=== PATIENT | male | born 1930 | race Caucasian/White ===

== ENCOUNTER 2017-02-27 13:23 | Inpatient (IN) | payer MEDICARE ==
[~2017-02-27] VITALS: Ht 167.6 cm; Wt 59.0 kg
[2017-02-27] MEDS ORDERED: Sodium Chloride 500ML 500 ML IV ONE (13:27)
[2017-02-27] MEDS ORDERED: Albuterol ud Inhalation HHN ONE (13:30)
[2017-02-27] MEDS ORDERED: Ipratropium 0.02% Inh Soln 2.5ml UD HHN ONE (13:30)
[2017-02-27] MEDS ORDERED: Solu-MEDROL 125mg Inj IVP ONE (13:30)
[2017-02-27] MEDS ORDERED: Tubing IV Cassette IV ONE (13:56)
--- NOTE | 2017-02-27 14:10 | Diagnostic Imaging Report ---
Indication: SOB Technique: One view of the chest Comparison: none Findings: Lungs and pleural spaces are clear. Heart size is normal. Surgical clips are seen in the right upper quadrant of the abdomen Impression: No acute process
[2017-02-27 14:15] VITALS: BP 115/65
[2017-02-27 14:29] LABS: EOSINOPHILS % (AUTO) 1.7 % (0.0-3.0); HEMATOCRIT 43.7 % (42.0-52.0); HEMOGLOBIN 14.3 G/DL (14.2-18.0); LYMPHOCYTES % (AUTO) 37.6 % (20.0-45.0); MEAN CORPUSCULAR VOLUME 101 FL (80-99); MONOCYTES % (AUTO) 8.9 % (1.0-10.0); NEUTROPHILS % (AUTO) 50.8 % (45.0-75.0); PLATELET COUNT 346 K/UL (150-450); RED BLOOD COUNT 4.33 M/UL (4.70-6.10); RED CELL DISTRIBUTION WIDTH 14.2 % (11.6-14.8)
[2017-02-27 14:43] LABS: ALANINE AMINOTRANSFERASE 29 U/L (12-78); ALBUMIN 3.4 G/DL (3.4-5.0); ALBUMIN/GLOBULIN RATIO 0.7 (1.0-2.7); ALKALINE PHOSPHATASE 115 U/L (46-116); ANION GAP 9 mmol/L (5-15); ASPARTATE AMINO TRANSFERASE 26 U/L (15-37); BILIRUBIN,TOTAL 1.1 MG/DL (0.2-1.0); BLOOD UREA NITROGEN 26 mg/dL (7-18); CALCIUM 9.7 MG/DL (8.5-10.1); CARBON DIOXIDE 28 MMOL/L (21-32); CHLORIDE 101 MMOL/L (98-107); CREATINE KINASE 35 U/L (26-308); CREATININE 2.2 MG/DL (0.55-1.30); POTASSIUM 4.6 MMOL/L (3.5-5.1); SODIUM 137 MMOL/L (136-145)
[2017-02-27 14:54] LABS: BILIRUBIN,DIRECT 0.3 MG/DL (0.0-0.3)
--- NOTE | 2017-02-27 15:04 | Emergency Room Report ---
History of Present Illness General Chief Complaint: Dyspnea/Respdistress Source: Medical Record, EMS Present Illness HPI 86YOM BIBEMS for "low O2 sat" EMS states low BP in the field Normal BP here Patient dementia? not providing much HPI Is not in any distress Initial temp was 96F, patient with cold extremities Possibly low O2 sat d/t cold extremities at SNF Review of paperwork shows known CKD and COPD but no history of CHF No other family members bedside per Dr Taylor Recent DC from [facility] nstemi S/p stent chf russell ischemic cardiomy afib stent placed left circumflex serum creat 2.3 at DC Allergies: Coded Allergies: No Known Allergies (Unverified , 02/27/17) Patient History Past Medical History: see triage record, unable to obtain, renal disease Past Surgical History: unable to obtain Pertinent Family History: unable to obtain Social History: Denies: smoking, alcohol use, drug use Immunizations: UTD Reviewed Nursing Documentation: PMH: Agreed, PSxH: Agreed Nursing Documentation-PMH Past Medical History: No History, Except For Hx Cardiac Problems: Yes - DE Hx Hypertension: Yes Hx Asthma: No - PLEURAL EFFUSION Hx Dialysis: No - ACUTE KIDNEY FAILURE Review of Systems All Other Systems: limited - Dementia Physical Exam Vital Signs Date Time Temp Pulse Resp B/P (MAP) Pulse Ox O2 Delivery O2 Flow Rate FiO2 02/27/17 13:20 55 20 78/40 93 Non-Rebreather 15.0 02/27/17 13:42 100 02/27/17 14:15 96.6 Sp02 EP Interpretation: reviewed, normal General Appearance: normal inspection, well appearing, no apparent distress, alert, GCS 15, non-toxic Head: normocephalic, atraumatic Eyes: bilateral eye PERRL, bilateral eye EOMI ENT: normal ENT inspection, hearing grossly normal, normal voice Neck: normal inspection, full range of motion, supple, no bony tend Respiratory: normal inspection, lungs clear, normal breath sounds, no respiratory distress, no retraction, no wheezing Cardiovascular #1: regular rate, rhythm, no edema Gastrointestinal: normal inspection, normal bowel sounds, non tender, soft, no guarding, no hernia Genitourinary: no CVA tenderness Musculoskeletal: normal inspection, back normal, normal range of motion, Xuan' s Sign negative Neurologic: normal inspection, alert, responsive, speech normal Psychiatric: normal inspection, judgement/insight normal, mood/affect normal Skin: normal inspection, normal color, no rash Medical Decision Making Medicare Attestation I Shola Cannon MD hereby attest that the medical record entry for date of service, 02/27/17 accurately reflects signatures/notations that I made in my capacity as MD when I treated/diagnosed the above listed Medicare beneficiary. I attest that this information is true, accurate and complete to the best of my knowledge. I understand that any falsification, omission, or concealment of material fact may subject me to administrative, civil, or criminal liability. This patient warrants hospital admission for extreme of age and has a condition that cannot be treated as outpatient. Diagnostic Impression: Primary Impression: Hypoxia Additional Impressions: Hypothermia Qualified Codes: T68.XXXA - Hypothermia, initial encounter Elevated lactic acid level CKD (chronic kidney disease) Qualified Codes: N18.9 - Chronic kidney disease, unspecified Atrial flutter by electrocardiogram ER Course BP is normal here throughout ED stay Afebrile. No leuks. Lactate 3.7 BNP very elevated in setting of CKD. Has known RUSSELL. Unknown baseline However lungs CTAB and CXR does not show pulm congestion Was given 500cc fluid bolus by Dr Martines prior to my taking over patient He is actually clinically dehydrated without much urine on straight cath so additional 500cc given by me for likely RUSSELL on CKD Had atrial flutter on ECG but is NSR on rhythm strip. Troponin is WNL. SerumCr of 2.2 is baseline per recent admit at [facility] Endorsed to Dr Taylor for admission, tele 445pm EKG Diagnostic Results Rate: other - aflutter ST Segments: no acute changes ASA given to the pt in ED: No Rhythm Strip Diag. Results EP Interpretation: yes Rate: 50 Rhythm: NSR, no PVC's, no ectopy Chest X-Ray Diagnostic Results Chest X-Ray Diagnostic Results : Chest X-Ray Ordered: Yes Indication: Shortness of Breath EP Interpretation: Yes Interpretation: no consolidation, no effusion, no pneumothorax, no acute cardiopulmonary disease Impression: No acute disease Electronically Signed by: Dr Shola Cannon MD Last Vital Signs Date Time Temp Pulse Resp B/P (MAP) Pulse Ox O2 Delivery O2 Flow Rate FiO2 02/27/17 14:15 96.6 57 16 115/65 100 Nasal Cannula 2.0 02/27/17 13:50 100 Status: improved Disposition: ADMITTED INPATIENT Condition: Serious Referrals: NON PHYSICIAN (PCP) SHOLA CANNON M.D. Feb 27, 2017 15:04
[2017-02-27 15:58] LABS: APPEARANCE,URINE SLIGHTLY CLOUDY; BILIRUBIN, URINE NEGATIVE (NEGATIVE); GLUCOSE, URINE (UA) NEGATIVE (NEGATIVE); KETONES,URINE NEGATIVE (NEGATIVE); LEUKOCYTE ESTERASE ,URINE 3+ (NEGATIVE); NITRITE,URINE NEGATIVE (NEGATIVE); PH,URINE 6 (4.5-8.0); PROTEIN,URINE 3+ (NEGATIVE); UROBILINOGEN,URINE 4 MG/DL (0.0-1.0)
[2017-02-27 16:00] VITALS: BP 121/44
[2017-02-27] MEDS ORDERED: AMIODARONE HCL400 M1 ORAL (16:01)
[2017-02-27] MEDS ORDERED: SENNA8.6 M2 PO (16:01)
[2017-02-27] MEDS ORDERED: FUROSEMIDE20 M1 ORAL (16:01)
[2017-02-27] MEDS ORDERED: KLONOPIN0.5 MG ORAL (16:01)
[2017-02-27] MEDS ORDERED: MULTIVITAMINS1 EAC8 ORAL (16:01)
[2017-02-27] MEDS ORDERED: MIRTAZAPINE15 MG ORAL (16:01)
[2017-02-27] MEDS ORDERED: LOSARTAN POTASS50 MG ORAL (16:01)
[2017-02-27] MEDS ORDERED: DULCOLAX RC (16:01)
[2017-02-27] MEDS ORDERED: ATORVASTATIN CA20 MG ORAL (16:01)
[2017-02-27] MEDS ORDERED: METOPROLOL TART50 M1 ORAL (16:01)
[2017-02-27] MEDS ORDERED: DOCUSATE SODIU100 MG ORAL (16:01)
[2017-02-27] MEDS ORDERED: VITAMIN C500 M1 ORAL (16:01)
[2017-02-27] MEDS ORDERED: FLEET MINERAL OIL RC (16:01)
[2017-02-27] MEDS ORDERED: ARICEPT5 MG ORAL (16:01)
[2017-02-27] MEDS ORDERED: PLAVIX75 MG ORAL (16:01)
[2017-02-27 16:06] LABS: COLOR,URINE YELLOW
[2017-02-27] MEDS ORDERED: cefTRIAXone 1 GM in D5W 55 ML IVPB ONE (16:30)
[2017-02-27] MEDS ORDERED: D5W 55 ML IV ONE (16:45)
--- NOTE | 2017-02-27 18:59 | Cardiology Progress Note ---
Assessment/Plan Assessment/Plan The patient is seen and examined, full consult note is dictated. Objective Last 24 Hour Vital Signs Date Time Temp Pulse Resp B/P (MAP) Pulse Ox O2 Delivery O2 Flow Rate FiO2 02/27/17 17:05 96.6 72 18 121/44 100 Nasal Cannula 2.0 100 02/27/17 16:00 72 18 121/44 100 Nasal Cannula 2.0 02/27/17 14:15 96.6 57 16 115/65 100 Nasal Cannula 2.0 02/27/17 13:50 56 20 100 Non-Rebreather 15.0 100 02/27/17 13:42 58 20 Non-Rebreather 15.0 100 02/27/17 13:42 100 02/27/17 13:42 58 20 100 Non-Rebreather 15.0 100 02/27/17 13:25 55 20 Nasal Cannula 2.0 02/27/17 13:20 55 20 78/40 93 Non-Rebreather 15.0 Intake and Output 02/27/17 02/28/17 19:00 07:00 Intake Total 1000 ml Balance 1000 ml Intake Oral 0 ml IV Total 1000 ml Laboratory Tests Test 02/27/17 13:52 02/27/17 14:35 02/27/17 15:20 White Blood Count 7.0 K/UL (4.8-10.8) Red Blood Count 4.33 M/UL (4.70-6.10) L Hemoglobin 14.3 G/DL (14.2-18.0) Hematocrit 43.7 % (42.0-52.0) Mean Corpuscular Volume 101 FL (80-99) H Mean Corpuscular Hemoglobin 33.0 PG (27.0-31.0) H Mean Corpuscular Hemoglobin Concent 32.6 G/DL (32.0-36.0) Red Cell Distribution Width 14.2 % (11.6-14.8) Platelet Count 346 K/UL (150-450) Mean Platelet Volume 7.7 FL (6.5-10.1) Neutrophils (%) (Auto) 50.8 % (45.0-75.0) Lymphocytes (%) (Auto) 37.6 % (20.0-45.0) Monocytes (%) (Auto) 8.9 % (1.0-10.0) Eosinophils (%) (Auto) 1.7 % (0.0-3.0) Basophils (%) (Auto) 1.0 % (0.0-2.0) Arterial Blood pH 7.409 (7.350-7.450) Arterial Blood Partial Pressure CO2 37.9 mmHg (35.0-45.0) Arterial Blood Partial Pressure O2 320.4 mmHg (75.0-100.0) H Arterial Blood HCO3 23.4 mmol/L (22.0-26.0) Arterial Blood Oxygen Saturation 99.0 % (92.0-98.0) H Arterial Blood Base Excess 0.9 Demetris Test Positive Sodium Level 137 MMOL/L (136-145) Potassium Level 4.6 MMOL/L (3.5-5.1) Chloride Level 101 MMOL/L (98-107) Carbon Dioxide Level 28 MMOL/L (21-32) Anion Gap 9 mmol/L (5-15) Blood Urea Nitrogen 26 mg/dL (7-18) H Creatinine 2.2 MG/DL (0.55-1.30) H Estimat Glomerular Filtration Rate mL/min (>60) Glucose Level 125 MG/DL (74-106) H Lactic Acid Level 3.70 mmol/L (0.66-2.22) H 2.10 mmol/L (0.66-2.22) Calcium Level 9.7 MG/DL (8.5-10.1) Total Bilirubin 1.1 MG/DL (0.2-1.0) H Direct Bilirubin 0.3 MG/DL (0.0-0.3) Aspartate Amino Transf (AST/SGOT) 26 U/L (15-37) Alanine Aminotransferase (ALT/SGPT) 29 U/L (12-78) Alkaline Phosphatase 115 U/L (46-116) Total Creatine Kinase 35 U/L (26-308) Creatine Kinase MB 1.0 NG/ML (0.0-3.6) Creatine Kinase MB Relative Index 2.8 Troponin I 0.005 ng/mL (0.000-0.056) Pro-B-Type Natriuretic Peptide 65747 pg/mL (0-125) H Total Protein 8.6 G/DL (6.4-8.2) H Albumin 3.4 G/DL (3.4-5.0) Globulin 5.2 g/dL Albumin/Globulin Ratio 0.7 (1.0-2.7) L Urine Color Yellow Urine Appearance Slightly cloudy Urine pH 6 (4.5-8.0) Urine Specific [place] 1.015 (1.005-1.035) Urine Protein 3+ (NEGATIVE) H Urine Glucose (UA) Negative (NEGATIVE) Urine Ketones Negative (NEGATIVE) Urine Occult Blood 5+ (NEGATIVE) H Urine Nitrite Negative (NEGATIVE) Urine Bilirubin Negative (NEGATIVE) Urine Urobilinogen 4 MG/DL (0.0-1.0) H Urine Leukocyte Esterase 3+ (NEGATIVE) H Urine RBC 10-15 /HPF (0 - 0) H Urine WBC 5-10 /HPF (0 - 0) H Urine Squamous Epithelial Cells None /LPF (NONE/OCC) Urine Bacteria Moderate /HPF (NONE) H BRANDYN FRANKS Feb 27, 2017 18:59
[2017-02-27] MEDS ORDERED: Fleet's Enema 133ml RECTAL PRN (19:45)
[2017-02-27 20:00] VITALS: BP 116/62
[2017-02-27] MEDS: Atorvastatin 20mg tab ORAL SCH (21:19)
[2017-02-27] MEDS: Sennosides 8.6mg ORAL SCH (21:19)
[2017-02-27] MEDS ORDERED: Vitamin A&D Oint 2oz Tube TOPIC SCH (21:30)
[2017-02-28] VITALS: BP 114/67
[2017-02-28 04:00] VITALS: BP 104/56
[2017-02-28 08:00] VITALS: BP 90/49
--- NOTE | 2017-02-28 08:00 | History and Physical Report ---
DATE OF ADMISSION: 02/27/2017 HISTORY OF PRESENT ILLNESS: The patient is an 86-year-old male, who has had a long and complicated admission recently at [facility]. The patient was admitted to [facility] on 01/23/2017 and discharged to group home on 02/09/2017. His hospital course was notable for [id number]-AV-[id number] elevation HI. He subsequently required cardiac catheterization and 3 stents were placed into the left apical circulation. He was also found to have acute diastolic heart failure. He also required to be intubated for respiratory failure. He also had kidney failure with an initial creatinine of 2.3 and discharge creatinine of 1.39. The patient also has a history of dementia and hypertension with a questionable history of COPD. The patient's hospital course also complicated by hematuria secondary to Brilinta and Plavix, which were then discontinued and then gradually resumed. The patient is now admitted to [facility] after being transferred from nursing facility with symptoms of altered mental status and hypoxemia. On arrival, his hypoxemia has resolved with supplemental oxygen. The patient's baseline mental status is unchanged; however, he is noted to have lactic acid elevation and a creatinine of 2.4, which is worse from previous. The patient also has evidence of UTI and he is no longer has a Baugh catheter. PAST HISTORY: As discussed above is notable for hyperlipidemia; atrial fibrillation; recent HI, status post stent; acute diastolic congestive heart failure; cognitive impairment; ischemic cardiomyopathy; and atherosclerosis. MEDICATIONS: The patient's list of home medications include amiodarone, ascorbic acid, Lipitor, Klonopin, Plavix, Colace, Aricept, Lasix, losartan, metoprolol, Remeron, multivitamins, and p.r.n. medications. SOCIAL HISTORY: The patient is a group home resident. No family is available. not noted any history of tobacco or alcohol usage. REVIEW OF SYSTEMS: Denies any headaches, hematemesis, melena, hematochezia, or weight loss. PHYSICAL EXAMINATION: GENERAL: An obese elderly male. HEENT: Unremarkable. LUNGS: Clear breath sounds bilaterally. ABDOMEN: Soft. NEUROLOGIC: Nonfocal. LABORATORY AND DIAGNOSTIC DATA: His most recent labs show normal CBC and a creatinine of 2.2. Glucose 125. Lactic acid 3.7. Imaging Studies: A was also obtained, which shows clear lung reaves. IMPRESSION: 1. Possible urinary tract infection. 2. Lactic acidosis. 3. Recent myocardial infarction, status post percutaneous coronary intervention. 4. History of congestive heart failure. 5. Dementia. 6. Recent hematuria. DISCUSSION: We will admit to the hospital. Consult Cardiology and Urology. Start antibiotics. Continue medications. We will follow carefully. Gerald Taylor M.D. DR: KIARA JOB#: [id number] CC:
--- NOTE | 2017-02-28 08:00 | History and Physical Report ---
DATE OF ADMISSION: 02/27/2017 HISTORY OF PRESENT ILLNESS: The patient is an 86-year-old male, who has had a long and complicated admission recently at [facility]. The patient was admitted to [facility] on 01/23/2017 and discharged to long-term on 02/09/2017. His hospital course was notable for eyo-CK-qxstyys elevation VT. He subsequently required cardiac catheterization and 3 stents were placed into the left apical circulation. He was also found to have acute diastolic heart failure. He also required to be intubated for respiratory failure. He also had kidney failure with an initial creatinine of 2.3 and discharge creatinine of 1.39. The patient also has a history of dementia and hypertension with a questionable history of COPD. The patient's hospital course also complicated by hematuria secondary to Brilinta and Plavix, which were then discontinued and then gradually resumed. The patient is now admitted to [facility] after being transferred from nursing facility with symptoms of altered mental status and hypoxemia. On arrival, his hypoxemia has resolved with supplemental oxygen. The patient's baseline mental status is unchanged; however, he is noted to have lactic acid elevation and a creatinine of 2.4, which is worse from previous. The patient also has evidence of UTI and he is no longer has a Baugh catheter. PAST HISTORY: As discussed above is notable for hyperlipidemia; atrial fibrillation; recent VT, status post stent; acute diastolic congestive heart failure; cognitive impairment; ischemic cardiomyopathy; and atherosclerosis. MEDICATIONS: The patient's list of home medications include amiodarone, ascorbic acid, Lipitor, Klonopin, Plavix, Colace, Aricept, Lasix, losartan, metoprolol, Remeron, multivitamins, and p.r.n. medications. SOCIAL HISTORY: The patient is a long-term resident. No family is available. not noted any history of tobacco or alcohol usage. REVIEW OF SYSTEMS: Denies any headaches, hematemesis, melena, hematochezia, or weight loss. PHYSICAL EXAMINATION: GENERAL: An obese elderly male. HEENT: Unremarkable. LUNGS: Clear breath sounds bilaterally. ABDOMEN: Soft. NEUROLOGIC: Nonfocal. LABORATORY AND DIAGNOSTIC DATA: His most recent labs show normal CBC and a creatinine of 2.2. Glucose 125. Lactic acid 3.7. Imaging Studies: A was also obtained, which shows clear lung reaves. IMPRESSION: 1. Possible urinary tract infection. 2. Lactic acidosis. 3. Recent myocardial infarction, status post percutaneous coronary intervention. 4. History of congestive heart failure. 5. Dementia. 6. Recent hematuria. DISCUSSION: We will admit to the hospital. Consult Cardiology and Urology. Start antibiotics. Continue medications. We will follow carefully. Gerald Taylor M.D. DR: KIARA JOB#: [id number] CC:
--- NOTE | 2017-02-28 08:00 | History and Physical Report ---
DATE OF ADMISSION: 02/27/2017 HISTORY OF PRESENT ILLNESS: The patient is an 86-year-old male, who has had a long and complicated admission recently at [facility]. The patient was admitted to [facility] on 01/23/2017 and discharged to longterm on 02/09/2017. His hospital course was notable for dyu-VB-qvkagzs elevation MA. He subsequently required cardiac catheterization and 3 stents were placed into the left apical circulation. He was also found to have acute diastolic heart failure. He also required to be intubated for respiratory failure. He also had kidney failure with an initial creatinine of 2.3 and discharge creatinine of 1.39. The patient also has a history of dementia and hypertension with a questionable history of COPD. The patient's hospital course also complicated by hematuria secondary to Brilinta and Plavix, which were then discontinued and then gradually resumed. The patient is now admitted to [facility] after being transferred from nursing facility with symptoms of altered mental status and hypoxemia. On arrival, his hypoxemia has resolved with supplemental oxygen. The patient's baseline mental status is unchanged; however, he is noted to have lactic acid elevation and a creatinine of 2.4, which is worse from previous. The patient also has evidence of UTI and he is no longer has a Baugh catheter. PAST HISTORY: As discussed above is notable for hyperlipidemia; atrial fibrillation; recent MA, status post stent; acute diastolic congestive heart failure; cognitive impairment; ischemic cardiomyopathy; and atherosclerosis. MEDICATIONS: The patient's list of home medications include amiodarone, ascorbic acid, Lipitor, Klonopin, Plavix, Colace, Aricept, Lasix, losartan, metoprolol, Remeron, multivitamins, and p.r.n. medications. SOCIAL HISTORY: The patient is a longterm resident. No family is available. not noted any history of tobacco or alcohol usage. REVIEW OF SYSTEMS: Denies any headaches, hematemesis, melena, hematochezia, or weight loss. PHYSICAL EXAMINATION: GENERAL: An obese elderly male. HEENT: Unremarkable. LUNGS: Clear breath sounds bilaterally. ABDOMEN: Soft. NEUROLOGIC: Nonfocal. LABORATORY AND DIAGNOSTIC DATA: His most recent labs show normal CBC and a creatinine of 2.2. Glucose 125. Lactic acid 3.7. Imaging Studies: A was also obtained, which shows clear lung reaves. IMPRESSION: 1. Possible urinary tract infection. 2. Lactic acidosis. 3. Recent myocardial infarction, status post percutaneous coronary intervention. 4. History of congestive heart failure. 5. Dementia. 6. Recent hematuria. DISCUSSION: We will admit to the hospital. Consult Cardiology and Urology. Start antibiotics. Continue medications. We will follow carefully. Gerald Taylor M.D. DR: KIARA JOB#: [id number] CC:
[2017-02-28] MEDS: Losartan 50mg tab ORAL SCH ×2 (09:00→18:00)
[2017-02-28] MEDS ORDERED: Amiodarone 200mg tab ORAL SCH (09:00)
--- NOTE | 2017-02-28 09:10 | Pulmonology Progress Note ---
Assessment/Plan Assessment/Plan IMPRESSION: 1. Possible urinary tract infection. 2. Lactic acidosis. Downtrending. 3. Recent myocardial infarction, status post percutaneous coronary intervention. 4. History of congestive heart failure. 5. Dementia. 6. Recent hematuria. 7. Bradycardia. DISCUSSION: Urology consult pending; unable to marino in ER; needs marino Cardiology following for bradycardia; may need to decrease amiodarone Check labs in AM Continue antibiotics Check labs in AM Subjective Interval Events: More awake; denies pain; bradycardic Constitutional: Reports: no symptoms HEENT: Repors: no symptoms Respiratory: Reports: no symptoms Cardiovascular: Reports: no symptoms Gastrointestinal/Abdominal: Reports: no symptoms Genitourinary: Reports: no symptoms Neurologic: Reports: no symptoms Allergies: Coded Allergies: No Known Allergies (Unverified , 02/27/17) Objective Last 24 Hour Vital Signs Date Time Temp Pulse Resp B/P (MAP) Pulse Ox O2 Delivery O2 Flow Rate FiO2 02/28/17 04:00 97.6 61 16 104/56 97 Nasal Cannula 2.0 02/28/17 04:00 69 02/28/17 00:00 62 02/28/17 00:00 97.7 65 20 114/67 100 Room Air 02/27/17 20:00 52 02/27/17 20:00 97.6 52 16 116/62 100 Nasal Cannula 2.0 02/27/17 17:05 96.6 72 18 121/44 100 Nasal Cannula 2.0 100 02/27/17 16:00 72 18 121/44 100 Nasal Cannula 2.0 02/27/17 14:15 96.6 57 16 115/65 100 Nasal Cannula 2.0 02/27/17 13:50 56 20 100 Non-Rebreather 15.0 100 02/27/17 13:42 58 20 Non-Rebreather 15.0 100 02/27/17 13:42 100 02/27/17 13:42 58 20 100 Non-Rebreather 15.0 100 02/27/17 13:25 55 20 Nasal Cannula 2.0 02/27/17 13:20 55 20 78/40 93 Non-Rebreather 15.0 General Appearance: no acute distress HEENT: normocephalic Respiratory/Chest: chest wall non-tender, lungs clear Cardiovascular: normal peripheral pulses, bradycardia Abdomen: normal bowel sounds, soft, non tender Microbiology Date/Time Source Procedure Growth Status 02/27/17 15:20 Urine,Clean Catch Urine Culture - Preliminary Gram Negative Bacillus 1 Resulted Laboratory Tests 02/27/17 13:52: White Blood Count 7.0, Red Blood Count 4.33L, Hemoglobin 14.3, Hematocrit 43.7, Mean Corpuscular Volume 101H, Mean Corpuscular Hemoglobin 33.0H, Mean Corpuscular Hemoglobin Concent 32.6, Red Cell Distribution Width 14.2, Platelet Count 346, Mean Platelet Volume 7.7, Neutrophils (%) (Auto) 50.8, Lymphocytes (% ) (Auto) 37.6, Monocytes (%) (Auto) 8.9, Eosinophils (%) (Auto) 1.7, Basophils ( %) (Auto) 1.0, Arterial Blood pH 7.409, Arterial Blood Partial Pressure CO2 37.9 , Arterial Blood Partial Pressure O2 320.4H, Arterial Blood HCO3 23.4, Arterial Blood Oxygen Saturation 99.0H, Arterial Blood Base Excess 0.9, Demetris Test Positive, Sodium Level 137, Potassium Level 4.6, Chloride Level 101, Carbon Dioxide Level 28, Anion Gap 9, Blood Urea Nitrogen 26H, Creatinine 2.2H, Estimat Glomerular Filtration Rate , Glucose Level 125H, Lactic Acid Level 3.70H , Calcium Level 9.7, Total Bilirubin 1.1H, Direct Bilirubin 0.3, Aspartate Amino Transf (AST/SGOT) 26, Alanine Aminotransferase (ALT/SGPT) 29, Alkaline Phosphatase 115, Total Creatine Kinase 35, Creatine Kinase MB 1.0, Creatine Kinase MB Relative Index 2.8, Troponin I 0.005, Pro-B-Type Natriuretic Peptide 34438A, Total Protein 8.6H, Albumin 3.4, Globulin 5.2, Albumin/Globulin Ratio 0.7L 02/27/17 14:35: Lactic Acid Level 2.10 02/27/17 15:20: Urine Color Yellow, Urine Appearance Slightly cloudy, Urine pH 6, Urine Specific [place] 1.015, Urine Protein 3+H, Urine Glucose (UA) Negative, Urine Ketones Negative, Urine Occult Blood 5+H, Urine Nitrite Negative, Urine Bilirubin Negative, Urine Urobilinogen 4H, Urine Leukocyte Esterase 3+H, Urine RBC 10-15H, Urine WBC 5-10H, Urine Squamous Epithelial Cells None, Urine Bacteria ModerateH Current Medications Medications (Trade) Dose Ordered Sig/Alirio Route PRN Reason Start Time Stop Time Status Last Admin Dose Admin Amiodarone HCl (Cordarone) 200 mg DAILY ORAL 02/28/17 09:00 03/30/17 08:59 Ascorbic Acid (Vitamin C) 500 mg DAILY ORAL 02/28/17 09:00 03/30/17 08:59 Atorvastatin Calcium (Lipitor) 20 mg BEDTIME ORAL 02/27/17 21:00 03/29/17 20:59 02/27/17 21:19 Bisacodyl (Dulcolax) 10 mg DAILYPRN PRN RECTAL Constipation 1st Line Agent 02/27/17 19:45 03/29/17 19:44 Ceftriaxone Sodium 1 gm/ Dextrose 55 ml @ 110 mls/hr Q24H IVPB 02/28/17 16:30 03/07/17 16:29 Clopidogrel Bisulfate (Plavix) 75 mg DAILY ORAL 02/28/17 09:00 03/30/17 08:59 Docusate Sodium (Colace) 100 mg DAILY ORAL 02/28/17 09:00 03/30/17 08:59 Donepezil HCl (Aricept) 5 mg DAILY ORAL 02/28/17 09:00 03/30/17 08:59 Furosemide (Lasix) 20 mg DAILY ORAL 02/28/17 09:00 03/30/17 08:59 Losartan Potassium (Cozaar) 50 mg BID ORAL 02/28/17 09:00 03/30/17 08:59 Mirtazapine (Remeron) 7.5 mg BEDTIME ORAL 02/27/17 21:00 03/29/17 20:59 02/27/17 21:19 Multivitamins Therapeutic (Therapeutic Multivitamin) 1 ea DAILY ORAL 02/28/17 09:00 03/30/17 08:59 Sennosides (Senokot) 8.6 mg QHS ORAL 02/27/17 21:00 03/29/17 20:59 02/27/17 21:19 Sodium Phosphate (Fleet's Sodium Phosl Enema) 133 ml DAILYPRN PRN RECTAL Constipation 2nd Line Agent 02/27/17 19:45 03/29/17 19:44 Gerald Taylor MD Feb 28, 2017 09:10
[2017-02-28] MEDS: Multivitamin w/Minerals tab ORAL SCH (09:27)
[2017-02-28] MEDS: Ascorbic Acid 500mg tab ORAL SCH (09:27)
[2017-02-28] MEDS: Donepezil 5mg Tab ORAL SCH (09:27)
[2017-02-28] MEDS: Docusate 100mg cap ORAL SCH (09:27)
--- NOTE | 2017-02-28 09:27 | Wound Care Consultation ---
Wound Assessment Wound Assessment #1: Wound Number: 1 Wound Present on Admission: Yes New Wound: No Status Change of Wound: No Wound Location Body Site Modif: left Wound Location Body Site: elbow Wound Type: pressure ulcer Silvio Test: Does not Silvio Pressure Ulcer Stage: I Wound Length: 4.5 Wound Width: 3.0 Percent of Wound [place]/Red: 100 Wound Drainage Amount: None Wound Drainage Odor: None/Absent Tissue Surrounding Wound: Erythemic Wound General Appearance: Reddened Wound Assessment #2: Wound Number: 2 Wound Present on Admission: Yes New Wound: No Status Change of Wound: No Wound Location Body Site Modif: right Wound Location Body Site: elbow Wound Type: pressure ulcer Silvio Test: Does not Silvio Pressure Ulcer Stage: I Wound Length: 3.0 Wound Width: 3.0 Percent of Wound [place]/Red: 100 Wound Drainage Amount: None Wound Drainage Odor: None/Absent Tissue Surrounding Wound: Erythemic Wound General Appearance: Reddened Wound Assessment #3: Wound Number: 3 Wound Present on Admission: Yes New Wound: No Status Change of Wound: No Wound Location Body Site Modif: left Wound Location Body Site: heel Wound Type: pressure ulcer Silvio Test: Does not Silvio Pressure Ulcer Stage: Deep Tissue Injury Wound Thickness: Full Thickness Wound Length: 3.0 Wound Width: 3.0 Wound Depth: utd Percent of Wound Purple/Maroon: 100 Wound Drainage Amount: None Wound Drainage Odor: None/Absent Tissue Surrounding Wound: Erythemic Wound General Appearance: Reddened - purple Wound Assessment #4: Wound Number: 4 Wound Present on Admission: Yes New Wound: No Status Change of Wound: No Wound Location Body Site Modif: right Wound Location Body Site: heel Wound Type: pressure ulcer Silvio Test: Does not Silvio Pressure Ulcer Stage: Deep Tissue Injury Wound Thickness: Full Thickness Wound Length: 2.5 Wound Width: 3.0 Wound Depth: utd Percent of Wound Purple/Maroon: 100 Wound Drainage Amount: None Wound Drainage Odor: None/Absent Tissue Surrounding Wound: Erythemic Wound General Appearance: Reddened - purple Wound Assessment #5: Wound Number: 5 Wound Present on Admission: Yes New Wound: No Status Change of Wound: No Wound Location Body Site Modif: mid Wound Location Body Site: sacral Wound Type: pressure ulcer Silvio Test: Does not Silvio Pressure Ulcer Stage: Deep Tissue Injury Wound Thickness: Full Thickness Wound Length: 4.5 Wound Width: 5.5 Wound Depth: utd Percent of Wound Purple/Maroon: 100 Wound Drainage Amount: None Wound Drainage Odor: None/Absent Tissue Surrounding Wound: Erythemic Wound General Appearance: Reddened - purple Wound Assessment #6: Wound Number: 6 Wound Present on Admission: Yes New Wound: No Status Change of Wound: No Wound Location Body Site Modif: upper Wound Location Body Site: back Wound Type: pressure ulcer Silvio Test: Does not Silvio Pressure Ulcer Stage: Deep Tissue Injury - scattered Wound Thickness: Full Thickness Wound Length: 6.0 Wound Width: 2.5 Wound Depth: utd Percent of Wound Purple/Maroon: 100 Wound Drainage Amount: None Wound Drainage Odor: None/Absent Tissue Surrounding Wound: Erythemic Wound General Appearance: Reddened - purple Wound Comment #1 Left elbow stage I pressure ulcer #2 Right elbow stage I pressure ulcer #3 Left heel DTI pressure ulcer #4 Right heel DTI pressure ulcer #5 Sacral DTI pressure ulcer #6 Back area scattered DTI pressure ulcer Recommendation -Local wound care per protocol -Keep clean and dry -Low air loss mattress -Offload both heels -Heel protector on both heels -Turn and reposition -Keep clean and dry -Assess and f/u accordingly for any changes MARIANA ARANDA RN Feb 28, 2017 09:27
[2017-02-28] MEDS ORDERED: NS 250 ML IVPB ONE (09:45)
[2017-02-28] MEDS: Amiodarone 200mg tab ORAL SCH (10:03)
--- NOTE | 2017-02-28 11:52 | Consultation ---
History of Present Illness General Date patient seen: Feb 28, 2017 Time patient seen: 11:46 Chief Complaint: Dyspnea/Respdistress Referring physician: Brandon Reason for Consultation: difficult marino, UTI Present Illness HPI 86 yo male hx of CAD at least one stent in place. custodial dependent, pretty severe dementia. Resting comfortably, asking for someone to "shoot him" . No urinary complaints but patient is poor historian. Low urine output in ER , question of CHF vs. UTI. Bladder scan today shows residual of about 138 mL. No history per records. Allergies: Coded Allergies: No Known Allergies (Unverified , 02/27/17) Medication History Scheduled Amiodarone Hcl* (Amiodarone Hcl*), 200 MG ORAL DAILY, (Reported) Ascorbic Acid* (Vitamin C*), 500 MG ORAL DAILY, (Reported) Atorvastatin Calcium* (Atorvastatin Calcium*), 20 MG ORAL BEDTIME, (Reported) Clopidogrel Bisulfate* (Plavix*), 75 MG ORAL DAILY, (Reported) Docusate Sodium* (Docusate Sodium*), 100 MG ORAL DAILY, (Reported) Donepezil Hcl* (Aricept*), 5 MG ORAL DAILY, (Reported) Furosemide* (Lasix*), 20 MG ORAL DAILY, (Reported) Losartan Potassium* (Losartan Potassium*), 50 MG ORAL BID, (Reported) Mirtazapine* (Remeron*), 7.5 MG ORAL BEDTIME, (Reported) Multivitamin With Minerals (Multivitamins With Minerals*), 1 TAB ORAL DAILY, ( Reported) Sennosides (Senna), 8.6 MG PO HS, (Reported) Scheduled PRN [Dulcolax supp], 10 MG RC DAILY PRN for Constipation, (Reported) [fleet mineral oil ], 133 ML RC EVERY 72 HOURS PRN for Constipation, (Reported) Discontinued Medications Clonazepam* (Klonopin*), 0.5 MG ORAL BID, (Reported) Discontinued Reason: discontinued med Metoprolol Tartrate* (Metoprolol Tartrate*), 50 MG ORAL EVERY 12 HOURS, ( Reported) Discontinued Reason: MD discontinued med Patient History Limited by: medical condition History Provided By: Medical Record Healthcare decision maker Resuscitation status Full Code Advanced Directive on File Past Medical/Surgical History Past Medical/Surgical History: (1) CKD (chronic kidney disease) (2) Elevated lactic acid level Review of Systems Constitutional: Reports: weakness All Other Systems: negative except mentioned in HPI Physical Exam General Appearance: confused, mild distress, thin Abdomen: soft Genitourinary/Rectal: normal genital exam Neurologic: alert Last 24 Hour Vital Signs Date Time Temp Pulse Resp B/P (MAP) Pulse Ox O2 Delivery O2 Flow Rate FiO2 02/28/17 08:00 97.9 71 20 90/49 98 Nasal Cannula 2.0 02/28/17 08:00 52 02/28/17 04:00 97.6 61 16 104/56 97 Nasal Cannula 2.0 02/28/17 04:00 69 02/28/17 00:00 62 02/28/17 00:00 97.7 65 20 114/67 100 Room Air 02/27/17 20:00 52 02/27/17 20:00 97.6 52 16 116/62 100 Nasal Cannula 2.0 02/27/17 17:05 96.6 72 18 121/44 100 Nasal Cannula 2.0 100 02/27/17 16:00 72 18 121/44 100 Nasal Cannula 2.0 02/27/17 14:15 96.6 57 16 115/65 100 Nasal Cannula 2.0 02/27/17 13:50 56 20 100 Non-Rebreather 15.0 100 02/27/17 13:42 58 20 Non-Rebreather 15.0 100 02/27/17 13:42 100 02/27/17 13:42 58 20 100 Non-Rebreather 15.0 100 02/27/17 13:25 55 20 Nasal Cannula 2.0 02/27/17 13:20 55 20 78/40 93 Non-Rebreather 15.0 Intake and Output 02/28/17 03/01/17 19:00 07:00 Output Total 138 ml Balance -138 ml Post Void Residual 138 ml Bladder Scan Volume Amount 101-150 ml Laboratory Tests Test 02/27/17 13:52 02/27/17 14:35 02/27/17 15:20 White Blood Count 7.0 K/UL (4.8-10.8) Red Blood Count 4.33 M/UL (4.70-6.10) L Hemoglobin 14.3 G/DL (14.2-18.0) Hematocrit 43.7 % (42.0-52.0) Mean Corpuscular Volume 101 FL (80-99) H Mean Corpuscular Hemoglobin 33.0 PG (27.0-31.0) H Mean Corpuscular Hemoglobin Concent 32.6 G/DL (32.0-36.0) Red Cell Distribution Width 14.2 % (11.6-14.8) Platelet Count 346 K/UL (150-450) Mean Platelet Volume 7.7 FL (6.5-10.1) Neutrophils (%) (Auto) 50.8 % (45.0-75.0) Lymphocytes (%) (Auto) 37.6 % (20.0-45.0) Monocytes (%) (Auto) 8.9 % (1.0-10.0) Eosinophils (%) (Auto) 1.7 % (0.0-3.0) Basophils (%) (Auto) 1.0 % (0.0-2.0) Arterial Blood pH 7.409 (7.350-7.450) Arterial Blood Partial Pressure CO2 37.9 mmHg (35.0-45.0) Arterial Blood Partial Pressure O2 320.4 mmHg (75.0-100.0) H Arterial Blood HCO3 23.4 mmol/L (22.0-26.0) Arterial Blood Oxygen Saturation 99.0 % (92.0-98.0) H Arterial Blood Base Excess 0.9 Demetris Test Positive Sodium Level 137 MMOL/L (136-145) Potassium Level 4.6 MMOL/L (3.5-5.1) Chloride Level 101 MMOL/L (98-107) Carbon Dioxide Level 28 MMOL/L (21-32) Anion Gap 9 mmol/L (5-15) Blood Urea Nitrogen 26 mg/dL (7-18) H Creatinine 2.2 MG/DL (0.55-1.30) H Estimat Glomerular Filtration Rate mL/min (>60) Glucose Level 125 MG/DL (74-106) H Lactic Acid Level 3.70 mmol/L (0.66-2.22) H 2.10 mmol/L (0.66-2.22) Calcium Level 9.7 MG/DL (8.5-10.1) Total Bilirubin 1.1 MG/DL (0.2-1.0) H Direct Bilirubin 0.3 MG/DL (0.0-0.3) Aspartate Amino Transf (AST/SGOT) 26 U/L (15-37) Alanine Aminotransferase (ALT/SGPT) 29 U/L (12-78) Alkaline Phosphatase 115 U/L (46-116) Total Creatine Kinase 35 U/L (26-308) Creatine Kinase MB 1.0 NG/ML (0.0-3.6) Creatine Kinase MB Relative Index 2.8 Troponin I 0.005 ng/mL (0.000-0.056) Pro-B-Type Natriuretic Peptide 68602 pg/mL (0-125) H Total Protein 8.6 G/DL (6.4-8.2) H Albumin 3.4 G/DL (3.4-5.0) Globulin 5.2 g/dL Albumin/Globulin Ratio 0.7 (1.0-2.7) L Urine Color Yellow Urine Appearance Slightly cloudy Urine pH 6 (4.5-8.0) Urine Specific [place] 1.015 (1.005-1.035) Urine Protein 3+ (NEGATIVE) H Urine Glucose (UA) Negative (NEGATIVE) Urine Ketones Negative (NEGATIVE) Urine Occult Blood 5+ (NEGATIVE) H Urine Nitrite Negative (NEGATIVE) Urine Bilirubin Negative (NEGATIVE) Urine Urobilinogen 4 MG/DL (0.0-1.0) H Urine Leukocyte Esterase 3+ (NEGATIVE) H Urine RBC 10-15 /HPF (0 - 0) H Urine WBC 5-10 /HPF (0 - 0) H Urine Squamous Epithelial Cells None /LPF (NONE/OCC) Urine Bacteria Moderate /HPF (NONE) H Microbiology Date/Time Source Procedure Growth Status 02/27/17 15:20 Urine,Clean Catch Urine Culture - Preliminary Gram Negative Bacillus 1 Resulted Height (Feet): 5 Height (Inches): 6.00 Weight (Pounds): 130 Medications Current Medications Medications (Trade) Dose Ordered Sig/Alirio Route PRN Reason Start Time Stop Time Status Last Admin Dose Admin Amiodarone HCl (Cordarone) 100 mg DAILY ORAL 02/28/17 10:30 03/30/17 10:29 02/28/17 10:03 Ascorbic Acid (Vitamin C) 500 mg DAILY ORAL 02/28/17 09:00 03/30/17 08:59 02/28/17 09:27 Atorvastatin Calcium (Lipitor) 20 mg BEDTIME ORAL 02/27/17 21:00 03/29/17 20:59 02/27/17 21:19 Bisacodyl (Dulcolax) 10 mg DAILYPRN PRN RECTAL Constipation 1st Line Agent 02/27/17 19:45 03/29/17 19:44 Ceftriaxone Sodium 1 gm/ Dextrose 55 ml @ 110 mls/hr Q24H IVPB 02/28/17 16:30 03/07/17 16:29 Clopidogrel Bisulfate (Plavix) 75 mg DAILY ORAL 02/28/17 09:00 03/30/17 08:59 02/28/17 09:27 Docusate Sodium (Colace) 100 mg DAILY ORAL 02/28/17 09:00 03/30/17 08:59 02/28/17 09:27 Donepezil HCl (Aricept) 5 mg DAILY ORAL 02/28/17 09:00 03/30/17 08:59 02/28/17 09:27 Losartan Potassium (Cozaar) 50 mg BID ORAL 02/28/17 09:00 03/30/17 08:59 Mirtazapine (Remeron) 7.5 mg BEDTIME ORAL 02/27/17 21:00 03/29/17 20:59 02/27/17 21:19 Multivitamins Therapeutic (Therapeutic Multivitamin) 1 ea DAILY ORAL 02/28/17 09:00 03/30/17 08:59 02/28/17 09:27 Sennosides (Senokot) 8.6 mg QHS ORAL 02/27/17 21:00 03/29/17 20:59 02/27/17 21:19 Sodium Phosphate (Fleet's Sodium Phosl Enema) 133 ml DAILYPRN PRN RECTAL Constipation 2nd Line Agent 02/27/17 19:45 03/29/17 19:44 Objective Narrative Procedure: under sterile conditions 16 central african coude passed, about 100 mL yellow urine obtained. Patient tolerated well. Assessment/Plan Status: stable Assessment/Plan 86 yo male with hx of CAD, dementia, possible CHF exacerbation? Admitted for obs. Question of UTI is valid given difficulty monitoring his voiding. Able to pass marino, but patient had very little urine in bladder. Seems likely pre- renal in regards to CKD exacerbation. If patient tolerates marino, may benefit from keeping it at facility and changing every 4-6 weeks. 1. maintain amrino till Creatinine nadirs. 2. 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 Jose Ramon Gamez M.D. Feb 28, 2017 11:52
[2017-02-28 12:00] VITALS: BP 101/39
--- NOTE | 2017-02-28 15:27 | Cardiology Report ---
APPROVED REPORT EKG Measurement Heart [id number] [place] 160P68 [id number] Sinus bradycardia Left axis deviation Nonspecific intraventricular block T wave abnormality, consider lateral ischemia Abnormal ECG
--- NOTE | 2017-02-28 15:27 | Cardiology Report ---
APPROVED REPORT EKG Measurement Heart [id number] SD 160P68 [id number] Sinus bradycardia Left axis deviation Nonspecific intraventricular block T wave abnormality, consider lateral ischemia Abnormal ECG
--- NOTE | 2017-02-28 15:27 | Cardiology Report ---
APPROVED REPORT EKG Measurement Heart [id number] W[place] 160P68 [id number] Sinus bradycardia Left axis deviation Nonspecific intraventricular block T wave abnormality, consider lateral ischemia Abnormal ECG
--- NOTE | 2017-02-28 15:42 | Cardiology Report ---
APPROVED REPORT EKG Measurement Heart [id number] NC P8 [id number] motion artifact proabley sineu with ivcd consider repeating ekg
--- NOTE | 2017-02-28 15:42 | Cardiology Report ---
APPROVED REPORT EKG Measurement Heart [id number] DC P8 [id number] motion artifact proabley sineu with ivcd consider repeating ekg
--- NOTE | 2017-02-28 15:42 | Cardiology Report ---
APPROVED REPORT EKG Measurement Heart [id number] MI P8 [id number] motion artifact proabley sineu with ivcd consider repeating ekg
[2017-02-28 16:00] VITALS: BP 101/42
[2017-02-28] MEDS: cefTRIAXone 1 GM in D5W 55 ML IVPB SCH (17:22)
[2017-02-28 20:00] VITALS: BP 143/74
[2017-02-28] MEDS: Atorvastatin 20mg tab ORAL SCH (21:14)
[2017-02-28] MEDS: Sennosides 8.6mg ORAL SCH (21:16)
--- NOTE | 2017-02-28 22:45 | Consultation ---
DATE OF CONSULTATION: 02/27/2017 CARDIOLOGY CONSULTATION CONSULTING PHYSICIAN: Noel Canseco M.D. REFERRING PHYSICIAN: Gerald Taylor M.D. REASON FOR CONSULTATION: Management of dyspnea in a patient with history of coronary artery disease, status post non-ST elevation myocardial infarction, status post PCI recently at [facility]. HISTORY OF PRESENT ILLNESS: The patient is a very unfortunate 86-year-old gentleman, who was brought in by EMS for O2 desaturation. The patient has underlying dementia, therefore, a detailed history cannot be obtained at this point. This report is prepared by using old records including records from the emergency department. According to the ER doctor, there was not much history to be obtained from the patient directly. The patient was, however, not in any distress. He was normotensive in the emergency department initially, but his blood pressure dropped to 78/40 mmHg. His heart rate was also in a low side around 55. Cardiology consultation was made at the request of Dr. Taylor for evaluation and management of dyspnea, O2 desaturation from cardiac standpoint, as well as addressing the bradycardia. I am familiar with this patient from [facility] admission when he was admitted in the month of January with a non-ST elevation myocardial infarction. Cardiac catheterization in that facility revealed multivessel coronary artery disease with proximal LAD, diagonal, and obtuse marginal of the left circumflex artery involvement, all of which arteries were successfully intervened with drug-eluting stents. The patient was placed initially on Brilinta and aspirin in combination; however, due to severe hematuria, Brilinta was replaced by Plavix. He was discharged on aspirin and Plavix to be taken for at least 12 months. A 2D echocardiography had shown chronic systolic congestive heart failure as his right heart catheterization had revealed a very low intracardiac filling pressure. At times, we had to give the patient IV boluses of normal saline. His creatinine at the time of discharge was around 1.3, which is his baseline. PAST MEDICAL HISTORY: 1. Coronary artery disease, multivessel, status post PCI of proximal LAD, obtuse marginal of the left circumflex artery, as well as diagonal vessels, on dual antiplatelet therapy. 2. History of chronic kidney disease, creatinine at the time of discharge from [facility] was 1.39. 3. Possible ischemic cardiomyopathy with LVEF of approximately 25%. 4. Recurrent hypotension requiring IV hydration. 5. Dementia. 6. History of non-ST elevation myocardial infarction recently. 7. History of hypertension. 8. Dementia. PAST SURGICAL HISTORY: Angioplasty and stent placement. MEDICATIONS: 1. Amiodarone 200 mg daily. 2. Vitamin C 500 mg p.o. daily. 3. Atorvastatin 20 mg p.o. nightly. 4. Plavix 75 mg p.o. daily. 5. Colace 100 mg p.o. daily. 6. Aricept 5 mg p.o. daily. 7. Lasix 20 mg p.o. daily. 8. Losartan 50 mg p.o. twice daily. 9. Remeron 7.5 mg nightly. 10. Multivitamin 1 tablet daily. 11. Senna 8.6 mg p.o. nightly. 12. Dulcolax 10 mg rectal daily as needed for constipation. 13. Fleet enema 133 mL rectal q.72 h. p.r.n. constipation. ALLERGIES: No known drug allergies. FAMILY HISTORY: No premature coronary artery disease or arrhythmogenic in the first-degree relatives REVIEW OF SYSTEMS: Currently a 12-system review cannot be obtained due to the patient's altered level of consciousness. PHYSICAL EXAMINATION: VITAL SIGNS: Blood pressure was 78/40, respirations of 20, pulse of 55, pulse oximetry of 93% on nonrebreather 15 liters/minute, and temperature 96.6 degrees Fahrenheit. GENERAL: The patient is a very unfortunate 86-year-old gentleman, who appears to be lethargic at this time, not communicating with me verbally. HEENT: Atraumatic and normocephalic. ENT, pupils are equal, round, and reactive to light and accommodation. There is conjunctival pallor. NECK: JVP less than 5 cm. No carotid bruits. Carotid upstrokes 2+ bilaterally. CARDIOVASCULAR: Normal S1, S2. Regular rate and rhythm. A 2/6 mid systolic murmur at the left sternal border. PMI is at 4th intercostal space at the midclavicular line. LUNGS: Clear to auscultation bilaterally. ABDOMEN: Soft, nontender, and nondistended. No hepatosplenomegaly. Positive bowel sounds. EXTREMITIES: No evidence of edema, clubbing, or cyanosis. IMAGING STUDY: Chest x-ray showed no acute cardiopulmonary disease. LABORATORY FINDINGS: WBC 7.0, hemoglobin of 14.3, hematocrit of 43.7, and platelet count is 346. Sodium 137, potassium 4.6, chloride 101, bicarbonate 28, BUN of 36, creatinine 2.2, glucose 125, and calcium is 9.7. Troponin-I 0.005. ProBNP was 13,462. A 12-lead electrocardiogram shows sinus bradycardia at a rate of [address] and T-wave abnormalities, no evidence of arrhythmias. ASSESSMENT AND PLAN: This is a very unfortunate 86-year-old gentleman, seen in Cardiology consultation at the request of Dr. Taylor: 1. Dyspnea with O2 desaturation. Chest x-ray is within normal limits. We would like to continue monitoring the patient's O2 saturation. Vital signs at this time shows 100% O2 saturation on 2 liters of O2. 2. We will obtain 2D echocardiography for assessment of left ventricular systolic function. Of note, the last 2D echocardiography at [facility] at [place] had shown ischemic cardiomyopathy with left ventricular ejection fraction of approximately 25%. 3. Acute kidney injury. The patient's creatinine at the time of discharge from [facility] was 1.39. This could be because of the daily furosemide. As mentioned above, a right heart catheterization in this patient had shown low intracardiac filling pressure. So, we would like to put a hold on the diuretics and provide fluid. In fact, chest x-ray shows no evidence of pulmonary edema. 4. Hypotension. This could be because of hypovolemia as well. It could be the cause for acute kidney injury as well. We will hold diuretics and we will give a small dose of intravenous hydration. 5. Multivessel coronary artery disease, status post percutaneous coronary intervention of proximal left anterior descending artery, obtuse marginal, and diagonal arteries. The patient requires to be on dual oral anti-platelet therapy including aspirin and Plavix. 6. History of hematuria. 7. Chronic kidney disease. 8. History of dementia. I would like to thank Dr. Taylor for the courtesy of this consultation. Noel Canseco M.D. : [place] JOB#: [id number] CC:
--- NOTE | 2017-02-28 23:37 | Cardiology Progress Note ---
Assessment/Plan Assessment/Plan 1. Sinus bradycardia, off metoprolol, amiodarone dose was decreased to 100mg daily. 2. Multivessel CAD, s/p PCI of pLAD, OM/LCx and Diagonal arteries, conintue DOAT with ASA and plavix. 3. Ischemic cardiomyopathy with LVEF at 25% with evidence of chronic and well compensated systolic CHF. 4. Hypotension, RHC at [facility] had revealed low intra-cardiac filling pressure, will give fluid. 5. RUSSELL, creat at time of DC from [facility] 1.39. Hold lasix for now, nephrology consult. Subjective Subjective Sinus rhythm at 77. Earlier had both hypotension and bradycardia, amiodarone dose was halved. Denies chest pain or SOB. Objective Last 24 Hour Vital Signs Date Time Temp Pulse Resp B/P (MAP) Pulse Ox O2 Delivery O2 Flow Rate FiO2 02/28/17 20:17 99 Nasal Cannula 3.0 32 02/28/17 20:16 Nasal Cannula 3.0 32 02/28/17 20:00 97.7 77 20 143/74 97 Nasal Cannula 3.5 02/28/17 16:00 97.6 64 18 101/42 100 Nasal Cannula 3.0 02/28/17 16:00 64 02/28/17 12:00 97.9 65 18 101/39 98 Nasal Cannula 3.0 02/28/17 12:00 61 02/28/17 08:00 97.9 71 20 90/49 98 Nasal Cannula 2.0 02/28/17 08:00 52 02/28/17 04:00 97.6 61 16 104/56 97 Nasal Cannula 2.0 02/28/17 04:00 69 02/28/17 00:00 62 02/28/17 00:00 97.7 65 20 114/67 100 Room Air Intake and Output 02/28/17 03/01/17 19:00 07:00 Intake Total 410 ml Output Total 488 ml Balance -78 ml Intake Oral 50 ml IV Total 360 ml Output Urine Total 350 ml Post Void Residual 138 ml Bladder Scan Volume Amount 101-150 ml 2D Echo: From [facility], LVEF ~25%, + WMA Microbiology Date/Time Source Procedure Growth Status 02/27/17 15:20 Urine,Clean Catch Urine Culture - Preliminary Gram Negative Bacillus 1 Resulted Objective HEENT: Atraumatic and normocephalic. ENT, pupils are equal, round, and reactive to light and accommodation. There is conjunctival pallor. NECK: JVP less than 5 cm. No carotid bruits. Carotid upstrokes 2+ bilaterally. CARDIOVASCULAR: Normal S1, S2. Regular rate and rhythm. A 2/6 mid systolic murmur at the left sternal border. PMI is at 4th intercostal space at the midclavicular line. LUNGS: Clear to auscultation bilaterally. ABDOMEN: Soft, nontender, and nondistended. No hepatosplenomegaly. Positive bowel sounds. EXTREMITIES: No evidence of edema, clubbing, or cyanosis. BRANDYN FRANKS Feb 28, 2017 23:37
--- NOTE | 2017-02-28 23:37 | Cardiology Progress Note ---
Assessment/Plan Assessment/Plan 1. Sinus bradycardia, off metoprolol, amiodarone dose was decreased to 100mg daily. 2. Multivessel CAD, s/p PCI of pLAD, OM/LCx and Diagonal arteries, conintue DOAT with ASA and plavix. 3. Ischemic cardiomyopathy with LVEF at 25% with evidence of chronic and well compensated systolic CHF. 4. Hypotension, RHC at [facility] had revealed low intra-cardiac filling pressure, will give fluid. 5. RUSSELL, creat at time of DC from [facility] 1.39. Hold lasix for now, nephrology consult. Subjective Subjective Sinus rhythm at 77. Earlier had both hypotension and bradycardia, amiodarone dose was halved. Denies chest pain or SOB. Objective Last 24 Hour Vital Signs Date Time Temp Pulse Resp B/P (MAP) Pulse Ox O2 Delivery O2 Flow Rate FiO2 02/28/17 20:17 99 Nasal Cannula 3.0 32 02/28/17 20:16 Nasal Cannula 3.0 32 02/28/17 20:00 97.7 77 20 143/74 97 Nasal Cannula 3.5 02/28/17 16:00 97.6 64 18 101/42 100 Nasal Cannula 3.0 02/28/17 16:00 64 02/28/17 12:00 97.9 65 18 101/39 98 Nasal Cannula 3.0 02/28/17 12:00 61 02/28/17 08:00 97.9 71 20 90/49 98 Nasal Cannula 2.0 02/28/17 08:00 52 02/28/17 04:00 97.6 61 16 104/56 97 Nasal Cannula 2.0 02/28/17 04:00 69 02/28/17 00:00 62 02/28/17 00:00 97.7 65 20 114/67 100 Room Air Intake and Output 02/28/17 03/01/17 19:00 07:00 Intake Total 410 ml Output Total 488 ml Balance -78 ml Intake Oral 50 ml IV Total 360 ml Output Urine Total 350 ml Post Void Residual 138 ml Bladder Scan Volume Amount 101-150 ml 2D Echo: From [facility], LVEF ~25%, + WMA Microbiology Date/Time Source Procedure Growth Status 02/27/17 15:20 Urine,Clean Catch Urine Culture - Preliminary Gram Negative Bacillus 1 Resulted Objective HEENT: Atraumatic and normocephalic. ENT, pupils are equal, round, and reactive to light and accommodation. There is conjunctival pallor. NECK: JVP less than 5 cm. No carotid bruits. Carotid upstrokes 2+ bilaterally. CARDIOVASCULAR: Normal S1, S2. Regular rate and rhythm. A 2/6 mid systolic murmur at the left sternal border. PMI is at 4th intercostal space at the midclavicular line. LUNGS: Clear to auscultation bilaterally. ABDOMEN: Soft, nontender, and nondistended. No hepatosplenomegaly. Positive bowel sounds. EXTREMITIES: No evidence of edema, clubbing, or cyanosis. BRANDYN FRANKS Feb 28, 2017 23:37
--- NOTE | 2017-02-28 23:37 | Cardiology Progress Note ---
Assessment/Plan Assessment/Plan 1. Sinus bradycardia, off metoprolol, amiodarone dose was decreased to 100mg daily. 2. Multivessel CAD, s/p PCI of pLAD, OM/LCx and Diagonal arteries, conintue DOAT with ASA and plavix. 3. Ischemic cardiomyopathy with LVEF at 25% with evidence of chronic and well compensated systolic CHF. 4. Hypotension, RHC at [facility] had revealed low intra-cardiac filling pressure, will give fluid. 5. RUSSELL, creat at time of DC from [facility] 1.39. Hold lasix for now, nephrology consult. Subjective Subjective Sinus rhythm at 77. Earlier had both hypotension and bradycardia, amiodarone dose was halved. Denies chest pain or SOB. Objective Last 24 Hour Vital Signs Date Time Temp Pulse Resp B/P (MAP) Pulse Ox O2 Delivery O2 Flow Rate FiO2 02/28/17 20:17 99 Nasal Cannula 3.0 32 02/28/17 20:16 Nasal Cannula 3.0 32 02/28/17 20:00 97.7 77 20 143/74 97 Nasal Cannula 3.5 02/28/17 16:00 97.6 64 18 101/42 100 Nasal Cannula 3.0 02/28/17 16:00 64 02/28/17 12:00 97.9 65 18 101/39 98 Nasal Cannula 3.0 02/28/17 12:00 61 02/28/17 08:00 97.9 71 20 90/49 98 Nasal Cannula 2.0 02/28/17 08:00 52 02/28/17 04:00 97.6 61 16 104/56 97 Nasal Cannula 2.0 02/28/17 04:00 69 02/28/17 00:00 62 02/28/17 00:00 97.7 65 20 114/67 100 Room Air Intake and Output 02/28/17 03/01/17 19:00 07:00 Intake Total 410 ml Output Total 488 ml Balance -78 ml Intake Oral 50 ml IV Total 360 ml Output Urine Total 350 ml Post Void Residual 138 ml Bladder Scan Volume Amount 101-150 ml 2D Echo: From [facility], LVEF ~25%, + WMA Microbiology Date/Time Source Procedure Growth Status 02/27/17 15:20 Urine,Clean Catch Urine Culture - Preliminary Gram Negative Bacillus 1 Resulted Objective HEENT: Atraumatic and normocephalic. ENT, pupils are equal, round, and reactive to light and accommodation. There is conjunctival pallor. NECK: JVP less than 5 cm. No carotid bruits. Carotid upstrokes 2+ bilaterally. CARDIOVASCULAR: Normal S1, S2. Regular rate and rhythm. A 2/6 mid systolic murmur at the left sternal border. PMI is at 4th intercostal space at the midclavicular line. LUNGS: Clear to auscultation bilaterally. ABDOMEN: Soft, nontender, and nondistended. No hepatosplenomegaly. Positive bowel sounds. EXTREMITIES: No evidence of edema, clubbing, or cyanosis. BRANDYN FRANKS Feb 28, 2017 23:37
[2017-03-01] VITALS: BP 122/54
[2017-03-01 06:25] LABS: BASOPHILS % (AUTO) 0.3 % (0.0-2.0); EOSINOPHILS % (AUTO) 0.2 % (0.0-3.0); HEMATOCRIT 34.8 % (42.0-52.0); HEMOGLOBIN 11.6 G/DL (14.2-18.0); LYMPHOCYTES % (AUTO) 25.4 % (20.0-45.0); MEAN CORPUSCULAR VOLUME 101 FL (80-99); MONOCYTES % (AUTO) 6.8 % (1.0-10.0); NEUTROPHILS % (AUTO) 67.3 % (45.0-75.0); PLATELET COUNT 237 K/UL (150-450); RED BLOOD COUNT 3.44 M/UL (4.70-6.10); RED CELL DISTRIBUTION WIDTH 13.9 % (11.6-14.8); WHITE BLOOD COUNT 7.6 K/UL (4.8-10.8)
[2017-03-01 07:09] LABS: ANION GAP 7 mmol/L (5-15); BLOOD UREA NITROGEN 35 mg/dL (7-18); CALCIUM 8.9 MG/DL (8.5-10.1); CARBON DIOXIDE 28 MMOL/L (21-32); CHLORIDE 108 MMOL/L (98-107); CREATININE 1.9 MG/DL (0.55-1.30); POTASSIUM 4.5 MMOL/L (3.5-5.1); SODIUM 143 MMOL/L (136-145)
[2017-03-01 08:00] VITALS: BP 155/58
--- NOTE | 2017-03-01 09:01 | Pulmonology Progress Note ---
Assessment/Plan Assessment/Plan IMPRESSION: 1. Possible urinary tract infection. 2. Lactic acidosis. Downtrending. 3. Recent myocardial infarction, status post percutaneous coronary intervention. 4. History of congestive heart failure. 5. Dementia. 6. Recent hematuria. 7. Bradycardia.Improved DISCUSSION: Baugh placed Cardiology following for bradycardia; decreased amiodarone Check labs in AM Continue antibiotics DC planning to SNF in AM Subjective Interval Events: Hgb dropped from 14 to 11; amiodarone adjusted Constitutional: Reports: no symptoms HEENT: Repors: no symptoms Respiratory: Reports: no symptoms Cardiovascular: Reports: no symptoms Gastrointestinal/Abdominal: Reports: no symptoms Allergies: Coded Allergies: No Known Allergies (Unverified , 02/27/17) Objective Last 24 Hour Vital Signs Date Time Temp Pulse Resp B/P (MAP) Pulse Ox O2 Delivery O2 Flow Rate FiO2 03/01/17 07:48 Nasal Cannula 2.0 28 03/01/17 07:48 98 Nasal Cannula 2.0 28 03/01/17 04:00 96.4 64 20 97 Nasal Cannula 3.5 64 03/01/17 04:00 48 03/01/17 00:00 96.3 55 20 122/54 Nasal Cannula 3.5 03/01/17 00:00 49 02/28/17 20:17 99 Nasal Cannula 3.0 32 02/28/17 20:16 Nasal Cannula 3.0 32 02/28/17 20:00 97.7 77 20 143/74 97 Nasal Cannula 3.5 02/28/17 20:00 59 02/28/17 16:00 97.6 64 18 101/42 100 Nasal Cannula 3.0 02/28/17 16:00 64 02/28/17 12:00 97.9 65 18 101/39 98 Nasal Cannula 3.0 02/28/17 12:00 61 Intake and Output 03/01/17 03/02/17 19:00 07:00 Intake Total 100 ml Output Total 450 ml Balance -350 ml Intake Oral 100 ml Output Urine Total 450 ml General Appearance: no acute distress HEENT: normocephalic Respiratory/Chest: chest wall non-tender, lungs clear Cardiovascular: normal peripheral pulses, normal rate Abdomen: normal bowel sounds, soft, non tender Extremities: no cyanosis Microbiology Date/Time Source Procedure Growth Status 02/27/17 13:45 Blood Blood Culture - Preliminary NO GROWTH AFTER 24 HOURS Resulted 02/27/17 13:35 Blood Blood Culture - Preliminary NO GROWTH AFTER 24 HOURS Resulted 02/27/17 14:10 Nasal Nares MRSA Culture - Final NO METHICILLIN RESISTANT STAPH AUREUS... Complete 02/27/17 15:20 Urine,Clean Catch Urine Culture - Final Klebsiella Pneumoniae Complete Laboratory Tests 03/01/17 05:30: White Blood Count 7.6, Red Blood Count 3.44L, Hemoglobin 11.6L, Hematocrit 34.8L , Mean Corpuscular Volume 101H, Mean Corpuscular Hemoglobin 33.6H, Mean Corpuscular Hemoglobin Concent 33.2, Red Cell Distribution Width 13.9, Platelet Count 237, Mean Platelet Volume 7.1, Neutrophils (%) (Auto) 67.3, Lymphocytes (% ) (Auto) 25.4, Monocytes (%) (Auto) 6.8, Eosinophils (%) (Auto) 0.2, Basophils ( %) (Auto) 0.3, Sodium Level 143, Potassium Level 4.5, Chloride Level 108H, Carbon Dioxide Level 28, Anion Gap 7, Blood Urea Nitrogen 35H, Creatinine 1.9H, Estimat Glomerular Filtration Rate , Glucose Level 88, Calcium Level 8.9, Pro-B- Type Natriuretic Peptide 2007H Current Medications Medications (Trade) Dose Ordered Sig/Alirio Route PRN Reason Start Time Stop Time Status Last Admin Dose Admin Amiodarone HCl (Cordarone) 100 mg DAILY ORAL 02/28/17 10:30 03/30/17 10:29 02/28/17 10:03 Ascorbic Acid (Vitamin C) 500 mg DAILY ORAL 02/28/17 09:00 03/30/17 08:59 02/28/17 09:27 Aspirin (Ecotrin) 81 mg DAILY ORAL 03/01/17 09:00 03/31/17 08:59 Atorvastatin Calcium (Lipitor) 20 mg BEDTIME ORAL 02/27/17 21:00 03/29/17 20:59 02/28/17 21:14 Bisacodyl (Dulcolax) 10 mg DAILYPRN PRN RECTAL Constipation 1st Line Agent 02/27/17 19:45 03/29/17 19:44 Ceftriaxone Sodium 1 gm/ Dextrose 55 ml @ 110 mls/hr Q24H IVPB 02/28/17 16:30 03/07/17 16:29 02/28/17 17:22 Clopidogrel Bisulfate (Plavix) 75 mg DAILY ORAL 02/28/17 09:00 03/30/17 08:59 02/28/17 09:27 Docusate Sodium (Colace) 100 mg DAILY ORAL 02/28/17 09:00 03/30/17 08:59 02/28/17 09:27 Donepezil HCl (Aricept) 5 mg DAILY ORAL 02/28/17 09:00 03/30/17 08:59 02/28/17 09:27 Losartan Potassium (Cozaar) 50 mg BID ORAL 02/28/17 09:00 03/30/17 08:59 Mirtazapine (Remeron) 7.5 mg BEDTIME ORAL 02/27/17 21:00 03/29/17 20:59 02/28/17 21:15 Multivitamins Therapeutic (Therapeutic Multivitamin) 1 ea DAILY ORAL 02/28/17 09:00 03/30/17 08:59 02/28/17 09:27 Sennosides (Senokot) 8.6 mg QHS ORAL 02/27/17 21:00 03/29/17 20:59 02/28/17 21:16 Sodium Phosphate (Fleet's Sodium Phosl Enema) 133 ml DAILYPRN PRN RECTAL Constipation 2nd Line Agent 02/27/17 19:45 03/29/17 19:44 Gerald Taylor MD Mar 01, 2017 09:01
[2017-03-01] MEDS: Amiodarone 200mg tab ORAL SCH (09:38)
[2017-03-01] MEDS: Ascorbic Acid 500mg tab ORAL SCH (09:38)
[2017-03-01] MEDS: Docusate 100mg cap ORAL SCH (09:38)
[2017-03-01] MEDS: Multivitamin w/Minerals tab ORAL SCH (09:38)
[2017-03-01] MEDS: Aspirin EC 81mg tab ORAL SCH (09:38)
[2017-03-01] MEDS: Donepezil 5mg Tab ORAL SCH (09:38)
[2017-03-01] MEDS: Losartan 50mg tab ORAL SCH ×2 (09:38→17:48)
[2017-03-01 12:00] VITALS: BP 131/74
[2017-03-01] MEDS: cefTRIAXone 1 GM in D5W 55 ML IVPB SCH (15:54)
[2017-03-01 16:00] VITALS: BP 146/67
[2017-03-01 20:00] VITALS: BP 149/58
[2017-03-01] MEDS: Atorvastatin 20mg tab ORAL SCH (20:58)
[2017-03-01] MEDS: Sennosides 8.6mg ORAL SCH (20:58)
[2017-03-02 00:33] VITALS: BP 153/78
[2017-03-02 04:00] VITALS: BP 157/84
[2017-03-02 06:45] LABS: BLOOD UREA NITROGEN 30 mg/dL (7-18); CARBON DIOXIDE 29 MMOL/L (21-32); CREATININE 1.5 MG/DL (0.55-1.30)
[2017-03-02 07:01] LABS: BASOPHILS % (AUTO) 0.7 % (0.0-2.0); EOSINOPHILS % (AUTO) 2.2 % (0.0-3.0); HEMATOCRIT 33.1 % (42.0-52.0); HEMOGLOBIN 11.1 G/DL (14.2-18.0); LYMPHOCYTES % (AUTO) 26.9 % (20.0-45.0); MEAN CORPUSCULAR VOLUME 100 FL (80-99); MONOCYTES % (AUTO) 9.2 % (1.0-10.0); NEUTROPHILS % (AUTO) 61.1 % (45.0-75.0); PLATELET COUNT 212 K/UL (150-450); RED BLOOD COUNT 3.31 M/UL (4.70-6.10); RED CELL DISTRIBUTION WIDTH 14.1 % (11.6-14.8); WHITE BLOOD COUNT 5.5 K/UL (4.8-10.8)
[2017-03-02 07:08] LABS: CHLORIDE 108 MMOL/L (98-107); POTASSIUM 4.7 MMOL/L (3.5-5.1); SODIUM 143 MMOL/L (136-145)
--- NOTE | 2017-03-02 07:19 | Pulmonology Progress Note ---
Assessment/Plan Assessment/Plan IMPRESSION: 1. Possible urinary tract infection. On Cefotaxime 2. Lactic acidosis. Downtrending. 3. Recent myocardial infarction, status post percutaneous coronary intervention. 4. History of congestive heart failure. 5. Dementia. 6. Recent hematuria. 7. Bradycardia.Improved DISCUSSION: Marino placed; will dc to SNF with marino Cardiology following for bradycardia; decreased amiodarone Continue antibiotics DC planning to SNF today Subjective Interval Events: Doing better Constitutional: Reports: no symptoms HEENT: Repors: no symptoms Respiratory: Reports: no symptoms Cardiovascular: Reports: no symptoms Gastrointestinal/Abdominal: Reports: no symptoms Genitourinary: Reports: no symptoms Allergies: Coded Allergies: No Known Allergies (Unverified , 02/27/17) Objective Last 24 Hour Vital Signs Date Time Temp Pulse Resp B/P (MAP) Pulse Ox O2 Delivery O2 Flow Rate FiO2 03/02/17 04:00 62 03/02/17 04:00 97.4 56 20 157/84 97 Nasal Cannula 2.0 03/02/17 00:33 97.5 62 18 153/78 100 Nasal Cannula 2.0 03/02/17 00:00 58 03/01/17 20:00 97.7 70 20 149/58 94 Nasal Cannula 2.0 03/01/17 20:00 59 03/01/17 19:43 Nasal Cannula 2.0 28 03/01/17 19:43 99 Nasal Cannula 2.0 28 03/01/17 17:48 146/67 03/01/17 16:00 97.5 61 16 146/67 100 Nasal Cannula 2.0 03/01/17 16:00 57 03/01/17 12:00 49 03/01/17 12:00 97.2 73 16 131/74 100 Nasal Cannula 2.0 03/01/17 09:38 155/60 03/01/17 08:00 58 03/01/17 08:00 97.0 63 18 155/58 97 Room Air 03/01/17 07:48 Nasal Cannula 2.0 28 03/01/17 07:48 98 Nasal Cannula 2.0 28 Intake and Output 03/02/17 03/03/17 19:00 07:00 Output Total 200 ml Balance -200 ml Output Urine Total 200 ml General Appearance: no acute distress HEENT: normocephalic Respiratory/Chest: chest wall non-tender, lungs clear Cardiovascular: normal peripheral pulses, regular rhythm, bradycardia Abdomen: normal bowel sounds Microbiology Date/Time Source Procedure Growth Status 02/27/17 13:45 Blood Blood Culture - Preliminary NO GROWTH AFTER 48 HOURS Resulted 02/27/17 13:35 Blood Blood Culture - Preliminary NO GROWTH AFTER 48 HOURS Resulted 02/27/17 14:10 Nasal Nares MRSA Culture - Final NO METHICILLIN RESISTANT STAPH AUREUS... Complete 02/27/17 15:20 Urine,Clean Catch Urine Culture - Final Klebsiella Pneumoniae Complete 02/27/17 14:10 Rectum VRE Culture - Final NO VANCOMYCIN RESISTANT ENTEROCOCCUS ... Complete Laboratory Tests 03/02/17 05:05: White Blood Count 5.5, Red Blood Count 3.31L, Hemoglobin 11.1L, Hematocrit 33.1L , Mean Corpuscular Volume 100H, Mean Corpuscular Hemoglobin 33.5H, Mean Corpuscular Hemoglobin Concent 33.6, Red Cell Distribution Width 14.1, Platelet Count 212, Mean Platelet Volume 7.1, Neutrophils (%) (Auto) 61.1, Lymphocytes (% ) (Auto) 26.9, Monocytes (%) (Auto) 9.2, Eosinophils (%) (Auto) 2.2, Basophils ( %) (Auto) 0.7, Sodium Level 143, Potassium Level 4.7, Chloride Level 108H, Carbon Dioxide Level 29, Blood Urea Nitrogen 30H, Creatinine 1.5H, Estimat Glomerular Filtration Rate , Glucose Level 80, Calcium Level 9.0 Current Medications Medications (Trade) Dose Ordered Sig/Alirio Route PRN Reason Start Time Stop Time Status Last Admin Dose Admin Amiodarone HCl (Cordarone) 100 mg DAILY ORAL 02/28/17 10:30 03/30/17 10:29 03/01/17 09:38 Ascorbic Acid (Vitamin C) 500 mg DAILY ORAL 02/28/17 09:00 03/30/17 08:59 03/01/17 09:38 Aspirin (Ecotrin) 81 mg DAILY ORAL 03/01/17 09:00 03/31/17 08:59 03/01/17 09:38 Atorvastatin Calcium (Lipitor) 20 mg BEDTIME ORAL 02/27/17 21:00 03/29/17 20:59 03/01/17 20:58 Bisacodyl (Dulcolax) 10 mg DAILYPRN PRN RECTAL Constipation 1st Line Agent 02/27/17 19:45 03/29/17 19:44 Ceftriaxone Sodium 1 gm/ Dextrose 55 ml @ 110 mls/hr Q24H IVPB 02/28/17 16:30 03/07/17 16:29 03/01/17 15:54 Clopidogrel Bisulfate (Plavix) 75 mg DAILY ORAL 02/28/17 09:00 03/30/17 08:59 03/01/17 09:38 Docusate Sodium (Colace) 100 mg DAILY ORAL 02/28/17 09:00 03/30/17 08:59 03/01/17 09:38 Donepezil HCl (Aricept) 5 mg DAILY ORAL 02/28/17 09:00 03/30/17 08:59 03/01/17 09:38 Losartan Potassium (Cozaar) 50 mg BID ORAL 02/28/17 09:00 03/30/17 08:59 03/01/17 17:48 Mirtazapine (Remeron) 7.5 mg BEDTIME ORAL 03/01/17 21:00 03/29/17 20:59 03/01/17 20:57 Multivitamins Therapeutic (Therapeutic Multivitamin) 1 ea DAILY ORAL 02/28/17 09:00 03/30/17 08:59 03/01/17 09:38 Sennosides (Senokot) 8.6 mg QHS ORAL 02/27/17 21:00 03/29/17 20:59 03/01/17 20:58 Sodium Phosphate (Fleet's Sodium Phosl Enema) 133 ml DAILYPRN PRN RECTAL Constipation 2nd Line Agent 02/27/17 19:45 03/29/17 19:44 Gerald Taylor MD Mar 02, 2017 07:19
[2017-03-02] MEDS ORDERED: PACERONE200 MG ORAL (07:21)
[2017-03-02 08:00] VITALS: BP 147/76
[2017-03-02 09:00] VITALS: BP 147/76
[2017-03-02] MEDS: Aspirin EC 81mg tab ORAL SCH (09:00)
[2017-03-02] MEDS: Donepezil 5mg Tab ORAL SCH (09:00)
[2017-03-02] MEDS: Multivitamin w/Minerals tab ORAL SCH (09:00)
[2017-03-02] MEDS: Losartan 50mg tab ORAL SCH (09:00)
[2017-03-02] MEDS: Docusate 100mg cap ORAL SCH (09:00)
[2017-03-02] MEDS: Ascorbic Acid 500mg tab ORAL SCH (09:00)
[2017-03-02] MEDS: Amiodarone 200mg tab ORAL SCH (09:00)
[2017-03-02] MEDS ORDERED: Tubing IV Secondary IV ONE (14:59)
[2017-03-02] MEDS ORDERED: NS 275ml ONE (14:59)
--- NOTE | 2017-03-02 17:21 | Cardiology Progress Note ---
Assessment/Plan Assessment/Plan 1. Sinus bradycardia, resolved. 2. Multivessel CAD, s/p PCI of pLAD, OM/LCx and Diagonal arteries, conintue DOAT with ASA and plavix. 3. Ischemic cardiomyopathy with LVEF at 25% with evidence of chronic and well compensated systolic CHF. 4. Hypotension, resolved, RHC at [facility] had revealed low intra-cardiac filling pressure. 5. PAF, on amiodarone 100mg daily. 6. RUSSELL resolved creat down to 1.5. 7. CKD. Subjective Subjective Sinus rhythm at 63.. Denies chest pain or SOB. Objective Last 24 Hour Vital Signs Date Time Temp Pulse Resp B/P (MAP) Pulse Ox O2 Delivery O2 Flow Rate FiO2 03/02/17 12:00 63 03/02/17 09:23 Nasal Cannula 2.0 28 03/02/17 09:23 99 Nasal Cannula 2.0 28 03/02/17 09:00 147/76 03/02/17 08:00 66 03/02/17 08:00 97.0 66 18 147/76 96 Nasal Cannula 2.0 03/02/17 04:00 62 03/02/17 04:00 97.4 56 20 157/84 97 Nasal Cannula 2.0 03/02/17 00:33 97.5 62 18 153/78 100 Nasal Cannula 2.0 03/02/17 00:00 58 03/01/17 20:00 97.7 70 20 149/58 94 Nasal Cannula 2.0 03/01/17 20:00 59 03/01/17 19:43 Nasal Cannula 2.0 28 03/01/17 19:43 99 Nasal Cannula 2.0 28 03/01/17 17:48 146/67 Intake and Output 03/02/17 03/03/17 19:00 07:00 Output Total 200 ml Balance -200 ml Output Urine Total 200 ml 2D Echo: LVEF ~25%, + WMA Laboratory Tests Test 03/02/17 05:05 White Blood Count 5.5 K/UL (4.8-10.8) Red Blood Count 3.31 M/UL (4.70-6.10) L Hemoglobin 11.1 G/DL (14.2-18.0) L Hematocrit 33.1 % (42.0-52.0) L Mean Corpuscular Volume 100 FL (80-99) H Mean Corpuscular Hemoglobin 33.5 PG (27.0-31.0) H Mean Corpuscular Hemoglobin Concent 33.6 G/DL (32.0-36.0) Red Cell Distribution Width 14.1 % (11.6-14.8) Platelet Count 212 K/UL (150-450) Mean Platelet Volume 7.1 FL (6.5-10.1) Neutrophils (%) (Auto) 61.1 % (45.0-75.0) Lymphocytes (%) (Auto) 26.9 % (20.0-45.0) Monocytes (%) (Auto) 9.2 % (1.0-10.0) Eosinophils (%) (Auto) 2.2 % (0.0-3.0) Basophils (%) (Auto) 0.7 % (0.0-2.0) Sodium Level 143 MMOL/L (136-145) Potassium Level 4.7 MMOL/L (3.5-5.1) Chloride Level 108 MMOL/L (98-107) H Carbon Dioxide Level 29 MMOL/L (21-32) Blood Urea Nitrogen 30 mg/dL (7-18) H Creatinine 1.5 MG/DL (0.55-1.30) H Estimat Glomerular Filtration Rate mL/min (>60) Glucose Level 80 MG/DL (74-106) Calcium Level 9.0 MG/DL (8.5-10.1) Objective HEENT: Atraumatic and normocephalic. ENT, pupils are equal, round, and reactive to light and accommodation. There is conjunctival pallor. NECK: JVP less than 5 cm. No carotid bruits. Carotid upstrokes 2+ bilaterally. CARDIOVASCULAR: Normal S1, S2. Regular rate and rhythm. A 2/6 mid systolic murmur at the left sternal border. PMI is at 4th intercostal space at the midclavicular line. LUNGS: Clear to auscultation bilaterally. ABDOMEN: Soft, nontender, and nondistended. No hepatosplenomegaly. Positive bowel sounds. EXTREMITIES: No evidence of edema, clubbing, or cyanosis. BRANDYN FRANKS Mar 02, 2017 17:21
--- NOTE | 2017-03-03 13:42 | Discharge Summary ---
Discharge Summary Hospital Course Date of Admission Feb 27, 2017 at 15:10 Date of Discharge Mar 02, 2017 at 15:00 Admitting Diagnosis Shortness of breath HPI Ankush Gomez is a 86 year old male who was admitted on Feb 27, 2017 at 15: 10 for Shortness Of Breath Hospital Course [id number] Discharge Discharge Disposition Patient was discharged to SNF/Subacute Facility(03) Discharge Diagnoses: Laura Hernandez NP Mar 03, 2017 13:42
--- NOTE | 2017-03-03 13:42 | Discharge Summary ---
Discharge Summary Hospital Course Date of Admission Feb 27, 2017 at 15:10 Date of Discharge Mar 02, 2017 at 15:00 Admitting Diagnosis Shortness of breath HPI Ankush Gomez is a 86 year old male who was admitted on Feb 27, 2017 at 15: 10 for Shortness Of Breath Hospital Course [id number] Discharge Discharge Disposition Patient was discharged to SNF/Subacute Facility(03) Discharge Diagnoses: Laura Hernandez NP Mar 03, 2017 13:42
--- NOTE | 2017-03-03 13:42 | Discharge Summary ---
Discharge Summary Hospital Course Date of Admission Feb 27, 2017 at 15:10 Date of Discharge Mar 02, 2017 at 15:00 Admitting Diagnosis Shortness of breath HPI Ankush Gomez is a 86 year old male who was admitted on Feb 27, 2017 at 15: 10 for Shortness Of Breath Hospital Course [id number] Discharge Discharge Disposition Patient was discharged to SNF/Subacute Facility(03) Discharge Diagnoses: Laura Hernandez NP Mar 03, 2017 13:42
--- NOTE | 2017-03-03 19:15 | Discharge Summary 2 SIG ---
DATE OF ADMISSION: 02/27/2017 DATE OF DISCHARGE: 03/02/2017 CONSULTANTS: 1. Noel Canseco M.D. 2. Jose Ramon Gamez M.D. HISTORY OF PRESENT ILLNESS: The patient is an 86-year-old male, who had a long and complicated admission recently at [facility] and was discharged to snf on 02/09/2017. He has required catheterization and three stents were placed he also had kidney failure. The patient was admitted to [place] after being transferred from nursing facility with symptoms of altered mental status and hypoxemia. BRIEF HOSPITAL COURSE: On evaluation at ED, lactate was elevated to 3.7. BNP was 13,462 and creatinine was 2.2. Chest x-ray done showed no acute cardiopulmonary disease. No consolidation, effusion or pneumothorax. EKG was in atrial flutter. Rhythm strip was in normal sinus rhythm. He has evidence of urinary tract infection and was admitted for lactic acidosis, UTI, and was started on IV antibiotics. He had low urine output. In ER, bladder scan showed residual of 130 mL. A 16-Burmese coude Baugh catheter was inserted and 100 mL yellow urine was obtained. Post stenting at [facility], the patient was on Brilinta and aspirin, however, developed hematuria. Brilinta was replaced with Plavix. The patient had episodes of bradycardia and hypotension. Amiodarone was decreased to 100 mg daily and was taken off metoprolol. He was given cefotaxime for possible urine infection. Urine culture showed growth of Klebsiella pneumoniae. He was continued on dual antiplatelet therapy with aspirin and Plavix and continued on atorvastatin. He was eventually discharged back to snf with a Baugh catheter. FINAL DIAGNOSES: 1. Possible urinary tract infection. 2. Lactic acidosis. 3. Recent myocardial infarction status post percutaneous coronary intervention. 4. Dementia. 5. Recent hematuria. 6. Bradycardia, improved. 7. Multivessel coronary artery disease. 8. Ischemic cardiomyopathy. 9. Hypotension, resolved. 10. Paroxysmal atrial fibrillation. 11. Acute kidney injury. 12. Chronic kidney disease. DISPOSITION: The patient was discharged to [facility]. DISCHARGE MEDICATIONS: Refer to medication list. Gerald Taylor M.D. I have been assigned to dictate discharge summary on this account and I was not involved in the patient's management. Laura Hernandez N.P. DR: KAIA JOB#: [id number] CC: TYREL
--- NOTE | 2017-03-03 19:15 | Discharge Summary 2 SIG ---
DATE OF ADMISSION: 02/27/2017 DATE OF DISCHARGE: 03/02/2017 CONSULTANTS: 1. Noel Canseco M.D. 2. Jose Ramon Gamez M.D. HISTORY OF PRESENT ILLNESS: The patient is an 86-year-old male, who had a long and complicated admission recently at [facility] and was discharged to skilled nursing on 02/09/2017. He has required catheterization and three stents were placed he also had kidney failure. The patient was admitted to [place] after being transferred from nursing facility with symptoms of altered mental status and hypoxemia. BRIEF HOSPITAL COURSE: On evaluation at ED, lactate was elevated to 3.7. BNP was 13,462 and creatinine was 2.2. Chest x-ray done showed no acute cardiopulmonary disease. No consolidation, effusion or pneumothorax. EKG was in atrial flutter. Rhythm strip was in normal sinus rhythm. He has evidence of urinary tract infection and was admitted for lactic acidosis, UTI, and was started on IV antibiotics. He had low urine output. In ER, bladder scan showed residual of 130 mL. A 16-[place]gent[place] coude Baugh catheter was inserted and 100 mL yellow urine was obtained. Post stenting at [facility], the patient was on Brilinta and aspirin, however, developed hematuria. Brilinta was replaced with Plavix. The patient had episodes of bradycardia and hypotension. Amiodarone was decreased to 100 mg daily and was taken off metoprolol. He was given cefotaxime for possible urine infection. Urine culture showed growth of Klebsiella pneumoniae. He was continued on dual antiplatelet therapy with aspirin and Plavix and continued on atorvastatin. He was eventually discharged back to skilled nursing with a Baugh catheter. FINAL DIAGNOSES: 1. Possible urinary tract infection. 2. Lactic acidosis. 3. Recent myocardial infarction status post percutaneous coronary intervention. 4. Dementia. 5. Recent hematuria. 6. Bradycardia, improved. 7. Multivessel coronary artery disease. 8. Ischemic cardiomyopathy. 9. Hypotension, resolved. 10. Paroxysmal atrial fibrillation. 11. Acute kidney injury. 12. Chronic kidney disease. DISPOSITION: The patient was discharged to [facility]. DISCHARGE MEDICATIONS: Refer to medication list. Gerald Taylor M.D. I have been assigned to dictate discharge summary on this account and I was not involved in the patient's management. Laura Hernandez N.P. DR: KAIA JOB#: [id number] CC: TYREL
--- NOTE | 2017-03-03 19:15 | Discharge Summary 2 SIG ---
DATE OF ADMISSION: 02/27/2017 DATE OF DISCHARGE: 03/02/2017 CONSULTANTS: 1. Noel Canseco M.D. 2. Jose Ramon Gamez M.D. HISTORY OF PRESENT ILLNESS: The patient is an 86-year-old male, who had a long and complicated admission recently at [facility] and was discharged to snf on 02/09/2017. He has required catheterization and three stents were placed he also had kidney failure. The patient was admitted to [facility] after being transferred from nursing facility with symptoms of altered mental status and hypoxemia. BRIEF HOSPITAL COURSE: On evaluation at ED, lactate was elevated to 3.7. BNP was 13,462 and creatinine was 2.2. Chest x-ray done showed no acute cardiopulmonary disease. No consolidation, effusion or pneumothorax. EKG was in atrial flutter. Rhythm strip was in normal sinus rhythm. He has evidence of urinary tract infection and was admitted for lactic acidosis, UTI, and was started on IV antibiotics. He had low urine output. In ER, bladder scan showed residual of 130 mL. A 16-Spanish coude Baugh catheter was inserted and 100 mL yellow urine was obtained. Post stenting at [facility], the patient was on Brilinta and aspirin, however, developed hematuria. Brilinta was replaced with Plavix. The patient had episodes of bradycardia and hypotension. Amiodarone was decreased to 100 mg daily and was taken off metoprolol. He was given cefotaxime for possible urine infection. Urine culture showed growth of Klebsiella pneumoniae. He was continued on dual antiplatelet therapy with aspirin and Plavix and continued on atorvastatin. He was eventually discharged back to snf with a Baugh catheter. FINAL DIAGNOSES: 1. Possible urinary tract infection. 2. Lactic acidosis. 3. Recent myocardial infarction status post percutaneous coronary intervention. 4. Dementia. 5. Recent hematuria. 6. Bradycardia, improved. 7. Multivessel coronary artery disease. 8. Ischemic cardiomyopathy. 9. Hypotension, resolved. 10. Paroxysmal atrial fibrillation. 11. Acute kidney injury. 12. Chronic kidney disease. DISPOSITION: The patient was discharged to [facility]. DISCHARGE MEDICATIONS: Refer to medication list. Gerald Taylor M.D. I have been assigned to dictate discharge summary on this account and I was not involved in the patient's management. Laura Hernandez N.P. DR: KAIA JOB#: [id number] CC: [id number]
== END 2017-03-02 15:00 | DRG 683 ==
LOC: EDBD 13:23 → EMR 14:07 → 2E 15:10 → EDBEDREQ 15:27
DX: N17.9 Acute kidney failure, unspecified (principal); N39.0 Urinary tract infection, site not specified; E87.2 Acidosis; I95.9 Hypotension, unspecified; I50.22 Chronic systolic (congestive) heart failure; I48.0 Paroxysmal atrial fibrillation; F03.90 Unspecified dementia, unspecified severity, without behavioral disturbance, psychotic disturbance, mood disturbance, and anxiety; R00.1 Bradycardia, unspecified; I25.5 Ischemic cardiomyopathy; B96.1 Klebsiella pneumoniae [K. pneumoniae] as the cause of diseases classified elsewhere; I25.2 Old myocardial infarction; N18.9 Chronic kidney disease, unspecified; I25.10 Atherosclerotic heart disease of native coronary artery without angina pectoris; Z95.5 Presence of coronary angioplasty implant and graft; E78.5 Hyperlipidemia, unspecified; I12.9 Hypertensive chronic kidney disease with stage 1 through stage 4 chronic kidney disease, or unspecified chronic kidney disease; Z79.02 Long term (current) use of antithrombotics/antiplatelets
CPT/HCPCS: 36415; 36600; 51701; 71010; 80048; 80053; 81003; 82248; 82550; 82553; 82803; 83605; 83880; 84484; 85025; 87040; 87081; 87086; 87181; 93005; 94640; 94664; 94760; 99285